=== PATIENT | female | born 1990 | race American Indian/Alaskan Native ===

== ENCOUNTER 2019-12-12 23:24 | Emergency (ER) | payer SELFPAY ==
[2019-12-13] MEDS ORDERED: ACETAMINOPHEN 500 MG TAB PO ONE (01:28)
[2019-12-13] MEDS ORDERED: IBUPROFEN 600 MG TAB PO ONE (01:28)
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
[2019-12-13 03:48] VITALS: BP 130/78
== END 2019-12-13 03:48 | disposition home or self-care (01) ==
LOC: ED 23:24
DX: S43.401A Unspecified sprain of right shoulder joint, initial encounter (principal); S83.8X1A Sprain of other specified parts of right knee, initial encounter; M62.830 Muscle spasm of back; Z88.0 Allergy status to penicillin; W30.81XA Contact with agricultural transport vehicle in stationary use, initial encounter; Y93.89 Activity, other specified; Y92.89 Other specified places as the place of occurrence of the external cause; Y99.8 Other external cause status
CPT/HCPCS: 72072